=== PATIENT | male | born 1975 | race Caucasian/White ===

== ENCOUNTER 2016-08-23 02:13 | Emergency (ER) | payer BC ==
[~2016-08-23] VITALS: Ht 188 cm; Wt 122.5 kg
[2016-08-23 02:24] VITALS: BP 155/72
[2016-08-23] MEDS ORDERED: FLUT16SP NS (02:46)
--- NOTE | 2016-08-23 02:46 | PHYS DOC ---
Past Medical History Past Medical History: High Cholesterol, Hypertension Past Surgical History: Other Additional Past Surgical Histo: left arm Alcohol Use: Occasionally Drug Use: None Adult General Chief Complaint Chief Complaint: HEADACHE HPI HPI Patient is a 41 year old male who presents with headache. Patient reports three -day history of nasal congestion and sinus pressure now causing difficulty sleeping. Headache throbbing, frontal, maxillary. Reports subjective fevers at home. Reports sore throat and dry cough. Headache not sudden in onset, not worst headache of his life, denies shortness of breath, chest pain, abdominal pain, vomiting, diarrhea, extremity numbness or weakness. Taking Tylenol at home without relief of symptoms. No known past medical history. Review of Systems Review of Systems Constitutional: Denies fever or chills Eyes: Denies change in visual acuity HENT: Reports nasal congestion, sore throat Respiratory: Reports cough, denies shortness of breath Cardiovascular: Denies chest pain or edema GI: Denies abdominal pain, nausea, vomiting, or diarrhea Musculoskeletal: Denies back pain or joint pain Integument: Denies rash or skin lesions Neurologic: Reports headache, denies focal weakness or sensory changes Current Medications Current Medications Current Medications Medications (Trade) Dose Ordered Sig/Kusum Start Time Stop Time Status Last Admin Dose Admin Ibuprofen (Motrin) 600 mg 1X ONCE 08/23/16 03:00 08/23/16 03:01 Allergies Allergies Allergies Coded Allergies Type Severity Reaction Last Updated Verified No Known Drug Allergies 08/23/16 No Physical Exam Physical Exam Constitutional: Well developed, well nourished, no acute distress, non-toxic appearance. HENT: Normocephalic, atraumatic, bilateral external ears normal, oropharynx moist, posterior oropharynx mild erythema no tonsillar enlargement/exudate, nose normal. tenderness over maxillary sinuses bilaterally. Eyes: PERRLA, EOMI, conjunctiva normal, no discharge. Neck: supple, no stridor. no nuchal rigidity Cardiovascular: RRR, no murmurs, no edema. Lungs & Thorax: LCTAB, no wheezing, no respiratory distress. Abdomen: soft, nontender, nondistended. Skin: Warm, dry, no erythema, no rash. Back: No tenderness. Extremities: No deformity. Neurologic: Alert and oriented X 3, CN2-12 grossly intact, symmetric strength/ sensation to UE & LE, no focal deficits noted. Psychologic: Affect normal, judgement normal, mood normal. Current Patient Data Vital Signs Vital Signs Date Time Temp Pulse Resp B/P Pulse Ox O2 Delivery O2 Flow Rate FiO2 08/23/16 02:24 99.4 102 18 155/72 95 Room Air 99.4 EKG EKG [] Radiology/Procedures Radiology/Procedures [] Course & Med Decision Making Course & Med Decision Making Pertinent Labs and Imaging studies reviewed. (See chart for details) Patient presents with sinus pressure headache. Symptoms consistent with viral sinusitis. He drove himself, gave ibuprofen here for pain relief. Prescription for fluticasone nasal spray. Rest, PO hydration, tylenol/ ibuprofen for pain or fever. Follow up with PCP if not improving in 1 week. Come back for sudden onset severe headache, worst headache of his life, severe chest pain or shortness of breath, extremity numbness or weakness, any otherwise worsening condition. Discharged home in stable condition. [] Dragon Disclaimer Dragon Disclaimer This electronic medical record was generated, in whole or in part, using a voice recognition dictation system. Departure Departure Impression: Primary Impression: Viral sinusitis Disposition: 01 HOME, SELF-CARE Condition: STABLE Referrals: ORLANDO NERI MD (PCP) Patient Instructions: Sinus Headache, [id number], Sinusitis, [id number] Additional Instructions: You were seen in the emergency department today for sinus headache. Please rest , drink fluids, take tylenol or ibuprofen for pain or fever, use nasal spray as prescribed. Follow up with Dr. Neri if not improving in 1 week. Come back for worst headache of your life or sudden onset severe headache, trouble moving arms or legs, severe chest pain or shortness of breath, any otherwise worsening condition. Scripts Fluticasone Propionate (Fluticasone Propionate Nasal [place])16 Gm [place].susp2 [place] NS DAILY PRN sinus congestion #1 EACH Prov:OMAIRA RAO MD 08/23/16 OMAIRA RAO MD Aug 23, 2016 02:46
[2016-08-23] MEDS ORDERED: IBUPROFEN 600 MG TABLET. PO ONE (03:00)
[2016-08-23 07:36] LABS: NEGATIVE OBC STREP NEG; POSITIVE OBC STREP POS
== END 2016-08-23 03:02 | disposition home or self-care (01) ==
LOC: ER 02:13
DX: J32.0 Chronic maxillary sinusitis (principal); B97.89 Other viral agents as the cause of diseases classified elsewhere; I10 Essential (primary) hypertension; E78.00 Pure hypercholesterolemia, unspecified
CPT/HCPCS: 87070; 87880; 99284